=== PATIENT | female | born 1995 | race Caucasian/White ===

== ENCOUNTER 2021-12-12 15:52 | Outpatient (CLI) | payer MEDICAID | END 2021-12-12 15:53 | disposition home or self-care (01) | LOC: LAB.N 15:52 | PROVIDERS: ATTEND Midwife | DX: Z34.02 Encounter for supervision of normal first pregnancy, second trimester (principal) | CPT/HCPCS: 36415; 84144 ==

== ENCOUNTER 2023-07-09 10:36 | Emergency (ER) | payer MEDICAID ==
[2023-07-09 12:10] LABS: RAPID STREP SCREEN Negative (Negative)
[2023-07-09] MEDS ORDERED: DEXAMETHASONE 10 MG/ML VIAL PO STA (12:12)
[2023-07-09] MEDS ORDERED: CHERRY SYRUP 10 ML UDC PO ONE (12:12)
--- NOTE | 2023-07-09 12:13 | ED Physician Documentation ---
PD HPI URI - Stated complaint Stated Complaint: RT THROAT SWELLING - Chief complaint Chief Complaint: Heent - History obtained from History obtained from: Patient - Additional information Additional information: Patient is a 27-year-old female presenting for evaluation of a sore throat that is been present for the past 2 to 3 days. Patient states that she had a rapid strep test done by her PCP which was negative and she was given a prescription for prednisone. She has been taking that without any improvement in her symptoms. She states over the last month she has had 3 episodes of sore throat similar to this and each time they get better for a few days but then it comes back again. Denies fever, cough, congestion, chest pain or shortness of air. Review of Systems Constitutional: denies: Fever Throat: reports: Sore throat Cardiac: denies: Chest pain / pressure Respiratory: denies: Dyspnea, Cough PD PAST MEDICAL HISTORY - Past Medical History Past Medical History: No - Past Surgical History Past Surgical History: No - Present Medications Home Medications: Ambulatory Orders Medication Instructions Recorded Confirmed No Known Home Medications 07/09/23 07/09/23 - Allergies Allergies/Adverse Reactions: Allergies Allergy/AdvReac Type Severity Reaction Status Date / Time No Known Drug Allergies Allergy Verified 07/09/23 10:43 - Social History Does the pt smoke?: No Smoking Status: Never smoker Does the pt drink ETOH?: No Does the pt have substance abuse?: No - Immunizations Immunizations are current?: Yes PD ED PE NORMAL - General General: Alert and oriented X 3, No acute distress, Well developed/nourished - HEENT HEENT: Atraumatic, Moist mucous membranes, Other (Bilateral tonsillar enlargement, right greater than left, no signs of peritonsillar abscess, uvula is midline, normal speech, no trismus, white exudate on bilateral tonsils) - Neck Neck: Supple, no meningeal sign - Cardiac Cardiac: RRR, No murmur - Respiratory Respiratory: No respiratory distress, Clear bilaterally - Derm Derm: Warm and dry - Neuro Neuro: Normal speech Results - Vitals Vitals: Vital Signs - 24 hr 07/09/23 07/09/23 10:40 12:23 Temperature 36.6 C 36.6 C Heart Rate 82 70 Respiratory 20 18 Rate Blood Pressure 136/75 H 114/61 O2 Saturation 97 100 Oxygen O2 Source Room air - Labs Labs: Laboratory Tests 07/09/23 11:09 Group A Strep Rapid Negative PD Medical Decision Making - ED course Complexity details: reviewed results, re-evaluated patient ED course: Patient with sore throat for the past 2 to 3 days. Has had a rapid strep that was previously negative and she is unsure of prior culture results. On exam she has no signs of peritonsillar abscess or deep space infection. She has been given prednisone but it is rather a low dose of 20 mg. Patient given a dose of Decadron here and counseled to stop the prednisone. Strep culture is pending. Patient counseled on continued supportive care as well as concerning symptoms to return for. Departure - Departure Disposition: Home, Self Care Clinical Impression: Pharyngitis Condition: Stable Instructions: ED Pharyngitis Viral Report Pending Comments: Your rapid strep test is negative. We are sending this off for a culture and we will notify you if you need an antibiotic. In the meanwhile I have given you a dose of a long-acting steroid called Decadron. I would not take any further doses of the prednisone that you were given. Please continue with acetaminophen and ibuprofen as needed for fever or pains. Return to the emergency department with worsening symptoms. Forms: PCP List Discharge Date/Time: 07/09/23 12:23
[2023-07-09 12:24] VITALS: BP 114/61; O2SAT 100
--- NOTE | 2023-07-12 18:38 | ED Physician Documentation ---
ED Addendum - Addendum Addendum: 07/12/23 18:38 I sent a prescription for penicillin VK 500 mg p.o. 4 times daily to her pharmacy and asked the nurse to update her based on the positive throat culture.
== END 2023-07-09 12:23 | disposition home or self-care (01) ==
LOC: ED 10:36
DX: J02.9 Acute pharyngitis, unspecified (principal)
CPT/HCPCS: 87070; 87077; 87430; 99283; A9270

== ENCOUNTER 2024-02-09 18:48 | Emergency (ER) | payer MEDICAID ==
[2024-02-09 19:02] VITALS: BP 105/92; O2SAT 99
--- NOTE | 2024-02-09 20:15 | ED Physician Documentation ---
PD HPI UPPER EXT INJURY - Stated complaint Stated Complaint: SHARPS INJURY - Chief complaint Chief Complaint: Needlestick - History obtained from History obtained from: Patient - Additonal information Additional information: The patient comes to the emergency department chief complaint of needlestick injury while at work. 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 The patient states that it was not during the procedure but after and she is not sure if there was any residual blood on the instrument. She does not know much about the source patient except that the patient had stated that he was otherwise healthy. The patient states that there was minimal bleeding from her thumb and the wound appeared to be fairly superficial. It happened around 10:00 this morning. Source patient's blood was not drawn. The patient thinks she has been immunized for hepatitis B. She is not known to be positive for any hepatitis or for HIV. PD PAST MEDICAL HISTORY - Past Medical History Past Medical History: No Cardiovascular: None Respiratory: None Neuro: None Endocrine/Autoimmune: None GI: None CAR HOSTLER: None : None HEENT: None Psych: Depression, Anxiety Musculoskeletal: None Derm: None - Past Surgical History Past Surgical History: No - Present Medications Home Medications: Ambulatory Orders Medication Instructions Recorded Confirmed Sertraline [Zoloft] 50 mg ORAL DAILY 02/09/24 02/09/24 - Allergies Allergies/Adverse Reactions: Allergies Allergy/AdvReac Type Severity Reaction Status Date / Time No Known Drug Allergies Allergy Verified 02/09/24 18:53 - Social History Does the pt smoke?: No Smoking Status: Former smoker Does the pt drink ETOH?: Yes Does the pt have substance abuse?: No - Immunizations Immunizations are current?: Yes - POLST Patient has POLST: No PD ED PE NORMAL - Vitals Vital signs reviewed: Yes - General General: Alert and oriented X 3, No acute distress, Well developed/nourished - HEENT HEENT: Atraumatic, EOMI, Moist mucous membranes - Neck Neck: Supple, no meningeal sign - Respiratory Respiratory: No respiratory distress - Derm Derm: Normal color, Warm and dry, No rash, Other (Tiny puncture wound in left thumb tip on palmar surface. No active bleeding. No erythema or streaking. No edema.) - Extremities Extremities: No deformity - Neuro Neuro: Other (Grossly intact) - Psych Psych: Normal mood, Normal affect Results - Vitals Vitals: Vital Signs - 24 hr 02/09/24 18:53 Temperature 36.5 C Heart Rate 72 Respiratory 16 Rate Blood Pressure 105/92 H O2 Saturation 99 Oxygen O2 Source Room air PD Medical Decision Making - ED course Complexity details: considered differential, d/w patient, d/w family ED course: I discussed with the patient that this is a very low risk exposure; however, since the source patient's hepatitis and HIV status is not known, we have drawn baseline labs for hepatitis B, C, and HIV. Based on the patient's exposure via solid sharp rather than hollow bore sharp, and also, based on the location and the exposure through the glove, The patient does not meet recommendation for prophylaxis at this time. The patient is referred to occupational health for follow-up in a month for repeat labs. Departure - Departure Disposition: 01 Home, Self Care Clinical Impression: Occupational exposure in workplace Condition: Stable Instructions: [place] Other Sharps Precautions, ED Body Fluid Exp HC Worker Comments: Your sharp exposure is very low risk. We have gotten baseline labs to evaluate for hepatitis and for HIV. Based on the details of your exposure, you do not meet criteria for prophylaxis for HIV. However, it is important that you have repeat levels drawn for hepatitis B if you are unvaccinated, as well as hepatitis C and HIV, and about a month with your primary care provider. We will contact you if any of your results come back positive for active infection. However, you may also follow-up your results by going to our hospital website at [email or web address], clicking on the "my [facility]" tab and signing up for the patient portal. Forms: PCP List
[2024-02-09 20:34] LABS: HIV RAPID SCREEN NEGATIVE (NEGATIVE)
[2024-02-11 12:09] LABS: HBsAG SCREEN Negative (Negative); HEPATITIS B SURFACE AB QUAL Non Reactive (.)
== END 2024-02-09 20:34 | disposition home or self-care (01) ==
LOC: ED 18:48
DX: S61.032A Puncture wound without foreign body of left thumb without damage to nail, initial encounter (principal); W27.8XXA Contact with other nonpowered hand tool, initial encounter; Y93.89 Activity, other specified; Y92.531 Health care provider office as the place of occurrence of the external cause; Y99.0 Civilian activity done for income or pay; Y81.3 Surgical instruments, materials and general- and plastic-surgery devices (including sutures) associated with adverse incidents; Z87.891 Personal history of nicotine dependence
CPT/HCPCS: 86703; 86704; 86706; 86803; 87340; 99282; 99283